=== PATIENT | female | born 1990 | race Two or more races ===

== ENCOUNTER 2024-10-22 08:46 | Emergency (ER) | payer OTHER ==
[~2024-10-22] VITALS: Ht 149.9 cm; Wt 52.6 kg
[2024-10-22] MEDS ORDERED: AVIANE-28 TABL1 EACH PO (08:58)
[2024-10-22] MEDS ORDERED: KETOROLAC TROMETHAMINE 30 MG VIAL IM STA (10:19)
[2024-10-22] MEDS ORDERED: KETOROLAC TROMETHAMINE 30 MG VIAL ONE (10:23)
[2024-10-22 13:45] VITALS: BP 132/80; O2SAT 100
== END 2024-10-22 13:48 | disposition home or self-care (01) ==
LOC: ER 08:46
DX: S99.821A Other specified injuries of right foot, initial encounter (principal); X37.1XXA Tornado, initial encounter; Y93.89 Activity, other specified; Y92.89 Other specified places as the place of occurrence of the external cause